=== PATIENT | male | born 1965 | race Hispanic/Latino ===

== ENCOUNTER 2023-10-13 15:05 | Emergency (ER) | payer MEDICAID ==
[~2023-10-13] VITALS: Ht 180.3 cm; Wt 68.0 kg
[2023-10-13] MEDS: SODIUM CHLORIDE 0.9% 500ML 500 ML IV ONE (15:59)
[2023-10-13] MEDS: FAMOTIDINE 20 MG/2 ML VIAL IV STA (15:59)
[2023-10-13] MEDS: METHYLPREDNISOLONE SOD SUCC 125 MG/2ML VIAL IV STA (15:59)
[2023-10-13] MEDS: DIPHENHYDRAMINE HCL INJ 50 MG/ML VIAL IV ONE (16:00)
[2023-10-13] MEDS ORDERED: PREDNISONE20 MG PO (19:05)
[2023-10-13 19:30] VITALS: PULSE 61; RESP 19; TEMP 98.3
[2023-10-13 20:01] VITALS: BP 151/94; PULSE 61; RESP 19; TEMP 98.3; O2SAT 100
== END 2023-10-13 20:00 | disposition home or self-care (01) ==
LOC: ER 15:18
DX: L50.0 Allergic urticaria (principal); I10 Essential (primary) hypertension; E11.9 Type 2 diabetes mellitus without complications; E78.5 Hyperlipidemia, unspecified
CPT/HCPCS: 99283; J1200; J2919; J7040

== ENCOUNTER 2023-10-17 07:59 | Emergency (ER) | payer MEDICAID ==
[~2023-10-17] VITALS: Ht 180.3 cm; Wt 74.8 kg
[~2023-10-17 07:59] MED LIST: PREDNISONE20 MG PO
[2023-10-17 08:30] VITALS: PULSE 81; RESP 18; TEMP 98.3; O2SAT 100
[2023-10-17] MEDS ORDERED: GRISEOFULVIN500 MG PO (09:34)
== END 2023-10-17 10:00 | disposition home or self-care (01) ==
LOC: ER 08:03
DX: R21 Rash and other nonspecific skin eruption (principal); I10 Essential (primary) hypertension; E11.9 Type 2 diabetes mellitus without complications; E78.5 Hyperlipidemia, unspecified
CPT/HCPCS: 99283